=== PATIENT | male | born 1995 | race Two or more races ===

== ENCOUNTER 2024-10-31 00:05 | Emergency (ER) | payer SELFPAY ==
[~2024-10-31] VITALS: Ht 177.8 cm; Wt 128.0 kg
[2024-10-31 00:27] VITALS: O2SAT 99
[2024-10-31 00:28] VITALS: BP 144/92; PULSE 73; RESP 18; TEMP 36.8; O2SAT 100
[2024-10-31] MEDS ORDERED: AMOX-494 MT (01:30)
[2024-10-31] MEDS ORDERED: FLUT15.844 BOTHNSTRLS (01:30)
[2024-10-31] MEDS ORDERED: IBUP-2029 MT (01:30)
== END 2024-10-31 01:38 | disposition home or self-care (01) ==
LOC: ER 00:05
DX: H69.93 Unspecified Eustachian tube disorder, bilateral (principal)
CPT/HCPCS: 99283